=== PATIENT | male | born 1940 | race Caucasian/White ===

== ENCOUNTER 2023-06-03 11:58 | Emergency (ER) | payer BC, MEDICARE ==
[~2023-06-03] VITALS: Ht 175.3 cm; Wt 63.0 kg
[~2023-06-03 11:58] MED LIST: ALPR.25 PO; ASPI81EC PO; ATOR10 PO; CLOP75 PO; DABI150C; DILT180 PO; DRON400T; TAMS.4ER; WARF5 PO
[2023-06-03 12:01] VITALS: BP 170/102
[2023-06-03] MEDS ORDERED: XARELTO20 M1 PO (12:13)
[2023-06-03] MEDS ORDERED: METO100ER PO (12:13)
== END 2023-06-03 12:56 | disposition home or self-care (01) ==
LOC: ER 11:58
DX: L98.9 Disorder of the skin and subcutaneous tissue, unspecified (principal); E78.5 Hyperlipidemia, unspecified; Z87.891 Personal history of nicotine dependence
CPT/HCPCS: 99283